=== PATIENT | male | born 1990 | race Caucasian/White ===

== ENCOUNTER 2021-02-05 22:09 | Emergency (ER) | payer OTHER ==
[~2021-02-05] VITALS: Ht 165.1 cm; Wt 90.2 kg
[2021-02-05] MEDS ORDERED: LORazepam 2 MG/ML VIAL IV STA (22:43)
[2021-02-05] MEDS ORDERED: LORazepam 2 MG/ML VIAL As Ordered ONE (22:46)
[2021-02-06 04:15] VITALS: BP 135/86
== END 2021-02-06 04:28 | disposition home or self-care (01) ==
LOC: M ED 22:09
DX: F41.0 Panic disorder [episodic paroxysmal anxiety] (principal)
CPT/HCPCS: 93041; 94760; 96374; 99285; J2060

== ENCOUNTER 2021-05-17 21:09 | Emergency (ER) | payer OTHER ==
[~2021-05-17] VITALS: Ht 165.1 cm; Wt 87.6 kg
--- NOTE | 2021-05-17 22:50 | REPVR ---
PROCEDURE INFORMATION: Exam: XR Right Hand Exam date and time: 05/17/21 (9:59pm) Age: 31 years old Clinical indication: Pain and swelling after punching something TECHNIQUE: Imaging protocol: XR Right hand Views: 3 or more views COMPARISON: No relevant prior studies available FINDINGS: Bones/joints: Acute 'Boxer's type fracture' at the right 5th metacarpal neck. The fracture is likely comminuted. Slight volar angulation of the distal fracture fragment. No dislocation. Soft tissues: Normal. IMPRESSION: Acute boxer's fracture, right 5th metacarpal neck, with slight palmar angulation. No dislocation. See additional comments above. Electronically signed by: Megan Rodriguez On 05/17/2021 22:49:49 PM
[2021-05-18 07:32] VITALS: BP 124/72
== END 2021-05-18 07:34 | disposition home or self-care (01) ==
LOC: M ED 21:09
DX: S62.336A Displaced fracture of neck of fifth metacarpal bone, right hand, initial encounter for closed fracture (principal); S60.511A Abrasion of right hand, initial encounter; W22.8XXA Striking against or struck by other objects, initial encounter; Y92.9 Unspecified place or not applicable; Y93.9 Activity, unspecified; Y99.9 Unspecified external cause status